=== PATIENT | female | born 1985 | race Caucasian/White ===

== ENCOUNTER 2018-07-21 00:13 | Emergency (ER) | payer SELFPAY ==
[2018-07-21] MEDS: ACETAMINOPHEN 500 MG TAB PO (02:22)
== END 2018-07-21 03:56 | disposition home or self-care (01) ==
LOC: FTE 00:13
DX: S16.1XXA Strain of muscle, fascia and tendon at neck level, initial encounter (principal); V49.50XA Passenger injured in collision with unspecified motor vehicles in traffic accident, initial encounter
CPT/HCPCS: 99283